=== PATIENT | female | born 1945 | race Caucasian/White ===

== ENCOUNTER 2018-05-07 12:04 | Inpatient (IN) | payer OTHER ==
[2018-05-07] VITALS (7 sets, daily range): BP systolic 91–131; BP diastolic 64–68
[~2018-05-07] VITALS: Ht 162.6 cm; Wt 100.3 kg
[2018-05-07 13:09] LABS: HEMATOCRIT 30.6 % (36.0-46.0); HEMOGLOBIN 9.9 G/DL (11.9-15.5); MCHC 32.4 G/DL (30.0-36.0); MCV 83.6 FL (83-99); PLATELET COUNT 349 K/uL (156-360); RBC DIS.WIDTH-CV 15.7 % (11.8-14.6); RBC DIS.WIDTH-SD 48.1 % (39-53); RED BLOOD COUNT 3.66 M/uL (3.80-5.20); WHITE BLOOD COUNT 20.7 K/uL (4.1-10.2)
[2018-05-07 13:18] LABS: CHLORIDE 112 mEq/L (99-109); POTASSIUM 4.1 mEq/L (3.7-5.4); SODIUM 143 mEq/L (136-147)
[2018-05-07 13:20] LABS: GLUCOSE 144 mg/dL (70-99)
[2018-05-07 13:24] LABS: CREATININE 0.7 mg/dL (0.6-1.3); GFR ESTIMATE (CALCULATED) > 59 mL/min/; UREA NITROGEN (BUN) 31 mg/dL (9-23)
[2018-05-07 13:44] LABS: INTER. NORMALIZED RATIO 1.2
[2018-05-07 13:46] LABS: PTT 27.6 SEC (25-37)
[2018-05-07] MEDS ORDERED: LO-DOSE ASPIRIN81 M2 PO (15:17)
[2018-05-07] MEDS ORDERED: TRICOR48 MG PO (15:18)
[2018-05-07] MEDS ORDERED: CALCIUM 600+D1 EACH PO (15:18)
[2018-05-07] MEDS ORDERED: ZESTRIL2.5 MG PO (15:19)
[2018-05-07] MEDS ORDERED: MIRALAX17 GM PO (15:21)
[2018-05-07] MEDS ORDERED: PRILOSEC20 MG PO (15:22)
[2018-05-07] MEDS ORDERED: SYNTHROID112 MCG PO (15:22)
[2018-05-07] MEDS ORDERED: KEPPRA250 MG PO (15:23)
[2018-05-07] MEDS ORDERED: ZOCOR10 MG PO (15:23)
[2018-05-07] MEDS ORDERED: TYLENOL REGULA325 MG PO (15:24)
[2018-05-07 15:44] LABS: ALBUMIN 3.1 g/dL (3.2-4.8)
[2018-05-07 15:47] LABS: TOTAL PROTEIN 5.7 g/dL (6.4-8.3)
[2018-05-07 15:48] LABS: TOTAL BILIRUBIN 0.4 mg/dL (0.0-1.0)
[2018-05-07 15:49] LABS: ALKALINE PHOSPHATASE 70 IU/L (3-129)
[2018-05-07 15:52] LABS: AST (GOT) 14 IU/L (2-34); DIRECT BILIRUBIN 0.2 mg/dL (0.0-0.3)
[2018-05-07 15:53] LABS: ALT (GPT) 13 IU/L (3-49); LIPASE 16 U/L (1.0-51.0)
[2018-05-07 17:05] LABS: HEMATOCRIT 30.5 % (36.0-46.0); HEMOGLOBIN 9.8 G/DL (11.9-15.5); MCV 83.3 FL (83-99)
[2018-05-07 17:25] LABS: TROP-I INTERPRETATION NEGATIVE; TROPONIN-I < 0.01 ng/mL (0.0-0.30)
[2018-05-07 17:46] LABS: THYROTROPIN (TSH) 9.2 MIU/L (0.4-5.5)
[2018-05-07 18:54] LABS: APPEARANCE CLOUDY ((CLEAR)); BILIRUBIN NEGATIVE; BLOOD NEGATIVE; COLOR YELLOW ((YELLOW)); GLUCOSE (STRIP) NEGATIVE; KETONES NEGATIVE; LEUKOCYTES LARGE; NITRITE POSITIVE; PROTEIN (STRIP) NEGATIVE; UROBILINOGEN 0.2 MG/DL (0.2-1.0)
[2018-05-07 19:21] LABS: BACTERIA 3+ /HPF; EPITHELIAL CELLS NONE SEEN /HPF; MUCUS NONE SEEN /LPF; RED BLOOD CELLS NONE SEEN /HPF (0-5); UCUL ADDED? YES; WHITE BLOOD CELLS 40-50 /HPF (0-5)
[2018-05-08 00:08] LABS: HEMATOCRIT 27.3 % (36.0-46.0); MCV 83.5 FL (83-99)
[2018-05-08 03:45] VITALS: BP 107/77
[2018-05-08 05:23] LABS: HEMATOCRIT 27.4 % (36.0-46.0); HEMOGLOBIN 8.6 G/DL (11.9-15.5); MCH 26.5 PG (29.0-34.0); MCHC 31.4 G/DL (30.0-36.0); MCV 84.3 FL (83-99); PLATELET COUNT 247 K/uL (156-360); RBC DIS.WIDTH-CV 15.6 % (11.8-14.6); RBC DIS.WIDTH-SD 47.8 % (39-53); RED BLOOD COUNT 3.25 M/uL (3.80-5.20); WHITE BLOOD COUNT 9.2 K/uL (4.1-10.2)
[2018-05-08 05:49] LABS: CHLORIDE 118 MEQ/L (99-109); CREATININE 0.4 MG/DL (0.6-1.3); GFR ESTIMATE (CALCULATED) > 59 mL/min/; GLUCOSE 102 mg/dL (70-99); POTASSIUM 3.7 MEQ/L (3.7-5.4); SODIUM 145 MEQ/L (136-147); UREA NITROGEN (BUN) 32 mg/dL (9-23)
[2018-05-08 08:06] VITALS: BP 127/68
[2018-05-08 11:41] VITALS: BP 135/62
[2018-05-08 12:12] LABS: HEMATOCRIT 28.2 % (36.0-46.0); HEMOGLOBIN 9.1 G/DL (11.9-15.5); MCV 84.2 FL (83-99)
[2018-05-08 15:37] VITALS: BP 114/58
[2018-05-08 16:45] LABS: HEMOGLOBIN 8.9 G/DL (11.9-15.5); MCV 84.1 FL (83-99)
[2018-05-08 19:01] VITALS: BP 98/77
[2018-05-08 22:41] LABS: HEMATOCRIT 24.6 % (36.0-46.0); HEMOGLOBIN 7.8 G/DL (11.9-15.5); MCV 84.2 FL (83-99)
[2018-05-08 23:30] VITALS: BP 145/81
[2018-05-09] VITALS (10 sets, daily range): BP systolic 69–169; BP diastolic 0–90
[2018-05-09 04:47] LABS: HEMOGLOBIN 8.6 G/DL (11.9-15.5); RED BLOOD COUNT 3.14 M/uL (3.80-5.20); WHITE BLOOD COUNT 8.8 K/uL (4.1-10.2)
[2018-05-09 04:48] LABS: BASOPHIL (%) 0.6 % (0-1); BASOPHIL COUNT 0.1 K/uL (0-0.1); EOSINOPHIL (%) 4.7 % (0-5); EOSINOPHIL COUNT 0.4 K/uL (0-0.3); HEMATOCRIT 26.3 % (36.0-46.0); IMMATURE GRANULOCYTE (%) 0.5 % (0.0-0.7); LYMPHOCYTE (%) 24.5 % (15-42); LYMPHOCYTE COUNT 2.2 K/uL (1.0-2.8); MCH 27.4 PG (29.0-34.0); MCHC 32.7 G/DL (30.0-36.0); MCV 83.8 FL (83-99); MONOCYTE (%) 6.7 % (3-12); MONOCYTE COUNT 0.6 K/uL (0-0.8); NEUTROPHIL COUNT 5.5 K/uL (1.8-6.4); PLATELET COUNT 229 K/uL (156-360); RBC DIS.WIDTH-CV 15.6 % (11.8-14.6); RBC DIS.WIDTH-SD 47.7 % (39-53)
[2018-05-09 05:55] LABS: ALBUMIN 3.1 G/DL (3.2-4.8); CHLORIDE 116 MEQ/L (99-109); CREATININE 0.4 MG/DL (0.6-1.3); GFR ESTIMATE (CALCULATED) > 59 mL/min/; GLUCOSE 89 mg/dL (70-99); PHOSPHORUS 2.4 mg/dL (2.5-4.9); POTASSIUM 3.5 MEQ/L (3.7-5.4); SODIUM 145 MEQ/L (136-147); UREA NITROGEN (BUN) 28 mg/dL (9-23)
[2018-05-09 10:18] LABS: HEMOGLOBIN 8.6 G/DL (11.9-15.5); MCV 83.6 FL (83-99)
[2018-05-09 17:36] LABS: HEMATOCRIT 28.9 % (36.0-46.0); MCV 85.5 FL (83-99)
[2018-05-09 22:09] LABS: HEMATOCRIT 21.7 % (36.0-46.0); MCV 85.1 FL (83-99)
[2018-05-10] VITALS (28 sets, daily range): BP systolic 82–147; BP diastolic 44–90
[2018-05-10 00:16] LABS: INTER. NORMALIZED RATIO 1.1
[2018-05-10 00:19] LABS: PTT 27.1 SEC (25-37)
[2018-05-10 05:11] LABS: BASOPHIL (%) 0.4 % (0-1); EOSINOPHIL (%) 0.2 % (0-5); HEMOGLOBIN 8.4 G/DL (11.9-15.5); IMMATURE GRANULOCYTE (%) 1.4 % (0.0-0.7); LYMPHOCYTE (%) 15.2 % (15-42); LYMPHOCYTE COUNT 1.5 K/uL (1.0-2.8); MCH 27.2 PG (29.0-34.0); MCHC 31.1 G/DL (30.0-36.0); MCV 87.4 FL (83-99); MONOCYTE (%) 5.5 % (3-12); MONOCYTE COUNT 0.6 K/uL (0-0.8); NEUTROPHIL (%) 77.3 % (45-76); NEUTROPHIL COUNT 7.7 K/uL (1.8-6.4); PLATELET COUNT 247 K/uL (156-360); RBC DIS.WIDTH-CV 15.6 % (11.8-14.6); RBC DIS.WIDTH-SD 49.2 % (39-53); RED BLOOD COUNT 3.09 M/uL (3.80-5.20); WHITE BLOOD COUNT 9.9 K/uL (4.1-10.2)
[2018-05-10 05:39] LABS: CHLORIDE 119 MEQ/L (99-109); CREATININE 0.5 MG/DL (0.6-1.3); GFR ESTIMATE (CALCULATED) > 59 mL/min/; GLUCOSE 129 mg/dL (70-99); MAGNESIUM 1.8 mg/dl (1.3-2.7); POTASSIUM 3.5 MEQ/L (3.7-5.4); SODIUM 145 MEQ/L (136-147); UREA NITROGEN (BUN) 15 mg/dL (9-23)
[2018-05-10 08:24] LABS: HEMATOCRIT 28.6 % (36.0-46.0); HEMOGLOBIN 9.4 G/DL (11.9-15.5); MCV 86.7 FL (83-99)
[2018-05-10 12:49] LABS: HEMATOCRIT 30.4 % (36.0-46.0); HEMOGLOBIN 9.9 G/DL (11.9-15.5); MCV 87.9 FL (83-99)
[2018-05-10 16:00] LABS: HEMATOCRIT 32.8 % (36.0-46.0); HEMOGLOBIN 10.4 G/DL (11.9-15.5); MCV 91.1 FL (83-99)
[2018-05-10 20:24] LABS: HEMATOCRIT 35.1 % (36.0-46.0); HEMOGLOBIN 11.1 G/DL (11.9-15.5); MCV 91.4 FL (83-99)
[2018-05-11] VITALS (11 sets, daily range): BP systolic 108–151; BP diastolic 62–99
[2018-05-11 00:48] LABS: HEMOGLOBIN 10.2 G/DL (11.9-15.5); MCV 87.6 FL (83-99)
[2018-05-11 05:29] LABS: HEMATOCRIT 32.8 % (36.0-46.0); HEMOGLOBIN 10.5 G/DL (11.9-15.5); MCH 28.4 PG (29.0-34.0); MCV 88.6 FL (83-99); NRBC (%) 0.2 /100 WBC (0-0); PLATELET COUNT 214 K/uL (156-360); RBC DIS.WIDTH-CV 15.9 % (11.8-14.6); WHITE BLOOD COUNT 8.4 K/uL (4.1-10.2)
[2018-05-11 05:51] LABS: CHLORIDE 116 MEQ/L (99-109); CREATININE 0.5 MG/DL (0.6-1.3); GFR ESTIMATE (CALCULATED) > 59 mL/min/; GLUCOSE 103 mg/dL (70-99); POTASSIUM 3.8 MEQ/L (3.7-5.4); SODIUM 145 MEQ/L (136-147); UREA NITROGEN (BUN) 8 mg/dL (9-23)
[2018-05-11 16:06] LABS: HEMATOCRIT 30.1 % (36.0-46.0); HEMOGLOBIN 9.7 G/DL (11.9-15.5); MCV 87.5 FL (83-99)
[2018-05-12 04:15] VITALS: BP 117/67
[2018-05-12 04:54] LABS: BASOPHIL (%) 0.4 % (0-1); EOSINOPHIL COUNT 0.4 K/uL (0-0.3); HEMATOCRIT 27.6 % (36.0-46.0); IMMATURE GRANULOCYTE (%) 1.3 % (0.0-0.7); LYMPHOCYTE COUNT 2.2 K/uL (1.0-2.8); MCH 28.8 PG (29.0-34.0); MCHC 32.6 G/DL (30.0-36.0); MCV 88.5 FL (83-99); MONOCYTE (%) 6.2 % (3-12); MONOCYTE COUNT 0.4 K/uL (0-0.8); NEUTROPHIL (%) 54.1 % (45-76); NEUTROPHIL COUNT 3.7 K/uL (1.8-6.4); PLATELET COUNT 208 K/uL (156-360); RBC DIS.WIDTH-CV 16.8 % (11.8-14.6); RBC DIS.WIDTH-SD 52.4 % (39-53); RED BLOOD COUNT 3.12 M/uL (3.80-5.20); WHITE BLOOD COUNT 6.8 K/uL (4.1-10.2)
[2018-05-12 05:24] LABS: ALBUMIN 2.4 G/DL (3.2-4.8); CHLORIDE 117 MEQ/L (99-109); CREATININE 0.4 MG/DL (0.6-1.3); GFR ESTIMATE (CALCULATED) > 59 mL/min/; GLUCOSE 88 mg/dL (70-99); POTASSIUM 3.2 MEQ/L (3.7-5.4); SODIUM 144 MEQ/L (136-147); UREA NITROGEN (BUN) 6 mg/dL (9-23)
[2018-05-12 08:46] VITALS: BP 140/75
[2018-05-12 12:01] VITALS: BP 134/67
[2018-05-12 15:50] VITALS: BP 144/72
[2018-05-12 20:00] VITALS: BP 131/77
[2018-05-13 00:05] VITALS: BP 140/66
[2018-05-13 04:00] VITALS: BP 126/73
[2018-05-13 05:29] LABS: BASOPHIL (%) 0.6 % (0-1); EOSINOPHIL (%) 5.6 % (0-5); EOSINOPHIL COUNT 0.4 K/uL (0-0.3); HEMATOCRIT 28.9 % (36.0-46.0); HEMOGLOBIN 9.3 G/DL (11.9-15.5); IMMATURE GRANULOCYTE (%) 0.9 % (0.0-0.7); LYMPHOCYTE (%) 31.1 % (15-42); LYMPHOCYTE COUNT 2.1 K/uL (1.0-2.8); MCH 28.4 PG (29.0-34.0); MCHC 32.2 G/DL (30.0-36.0); MCV 88.4 FL (83-99); MONOCYTE (%) 6.4 % (3-12); MONOCYTE COUNT 0.4 K/uL (0-0.8); NEUTROPHIL (%) 55.4 % (45-76); NEUTROPHIL COUNT 3.7 K/uL (1.8-6.4); PLATELET COUNT 222 K/uL (156-360); RBC DIS.WIDTH-CV 16.9 % (11.8-14.6); RBC DIS.WIDTH-SD 53.1 % (39-53); RED BLOOD COUNT 3.27 M/uL (3.80-5.20); WHITE BLOOD COUNT 6.6 K/uL (4.1-10.2)
[2018-05-13 05:48] LABS: ALBUMIN 2.6 G/DL (3.2-4.8); ALKALINE PHOSPHATASE 57 IU/L (3-129); ALT (GPT) 12 IU/L (3-49); AST (GOT) 16 IU/L (2-34); CHLORIDE 115 MEQ/L (99-109); CREATININE 0.4 MG/DL (0.6-1.3); GFR ESTIMATE (CALCULATED) > 59 mL/min/; GLUCOSE 93 mg/dL (70-99); POTASSIUM 3.3 MEQ/L (3.7-5.4); SODIUM 145 MEQ/L (136-147); TOTAL BILIRUBIN 0.5 MG/DL (0.0-1.0); TOTAL PROTEIN 4.6 G/DL (6.4-8.3); UREA NITROGEN (BUN) 4 mg/dL (9-23)
[2018-05-13 08:48] VITALS: BP 138/66
[2018-05-13 11:47] VITALS: BP 140/67
[2018-05-13 15:55] VITALS: BP 146/74
== END 2018-05-13 19:30 | DRG 377 ==
LOC: EME 12:04 → 4EAST 16:16 → EDOF 16:16 → 4WEST 16:16 → ENRESERV 16:25 → 4EAST 21:13 → ENRESERV 05-09 23:07 → 4WEST 05-09 23:22 → ENRESERV 05-11 03:37 → 4WEST 05-11 03:39 → 4EAST 05-11 04:09
PROVIDERS: Emergency Medicine; Hospitalist; Internal Medicine; Internal Medicine Gastroenterology; Surgery
PROC: 30233N1 Transfusion of Nonautologous Red Blood Cells into Peripheral Vein, Percutaneous Approach (ICD-10-PCS; principal; 2018-05-07)
PROC: 0DB68ZX Excision of Stomach, Via Natural or Artificial Opening Endoscopic, Diagnostic (ICD-10-PCS; 2018-05-08)
PROC: 0DJD8ZZ Inspection of Lower Intestinal Tract, Via Natural or Artificial Opening Endoscopic (ICD-10-PCS; 2018-05-09)
DX: K57.31 Diverticulosis of large intestine without perforation or abscess with bleeding (principal); R57.1 Hypovolemic shock; N39.0 Urinary tract infection, site not specified; D62 Acute posthemorrhagic anemia; E87.2 Acidosis; N20.1 Calculus of ureter; F33.9 Major depressive disorder, recurrent, unspecified; B96.20 Unspecified Escherichia coli [E. coli] as the cause of diseases classified elsewhere; Z16.12 Extended spectrum beta lactamase (ESBL) resistance; N63.21 Unspecified lump in the left breast, upper outer quadrant; E66.9 Obesity, unspecified; E03.9 Hypothyroidism, unspecified; E78.5 Hyperlipidemia, unspecified; G40.909 Epilepsy, unspecified, not intractable, without status epilepticus; I10 Essential (primary) hypertension; I25.10 Atherosclerotic heart disease of native coronary artery without angina pectoris; I44.7 Left bundle-branch block, unspecified; K21.9 Gastro-esophageal reflux disease without esophagitis; K29.70 Gastritis, unspecified, without bleeding; K57.10 Diverticulosis of small intestine without perforation or abscess without bleeding; K59.00 Constipation, unspecified; K76.0 Fatty (change of) liver, not elsewhere classified; M19.90 Unspecified osteoarthritis, unspecified site; M81.0 Age-related osteoporosis without current pathological fracture; N63.23 Unspecified lump in the left breast, lower outer quadrant; R32 Unspecified urinary incontinence; D12.7 Benign neoplasm of rectosigmoid junction; F41.9 Anxiety disorder, unspecified; Z88.0 Allergy status to penicillin; Z74.01 Bed confinement status; Z79.82 Long term (current) use of aspirin; Z85.828 Personal history of other malignant neoplasm of skin; Z88.9 Allergy status to unspecified drugs, medicaments and biological substances; Z90.710 Acquired absence of both cervix and uterus; Z95.5 Presence of coronary angioplasty implant and graft; Z88.1 Allergy status to other antibiotic agents; Z88.2 Allergy status to sulfonamides; Z68.39 Body mass index [BMI] 39.0-39.9, adult; Z82.49 Family history of ischemic heart disease and other diseases of the circulatory system
CPT/HCPCS: 71045; 74177; 78278; 80048; 80053; 80069; 80076; 81003; 82948; 83605; 83690; 83735; 84439; 84443; 84484; 85014; 85018; 85025; 85027; 85610; 85730; 86850; 86870; 86900; 86901; 86905; 86920; 87077; 87086; 87186; 87641; 88305; 88342 TC; 92610 GN; 93005; 94799; 99281; 99285; A9512; A9560; C9113; J0330; J0696; J1335; J1644; J1940; J1953; J2405; J3475; J3480; J7030; J7040; J7050; P9016